=== PATIENT | male | born 1965 | race Caucasian/White ===

== ENCOUNTER 2023-07-02 18:01 | Outpatient (RCR) | payer OTHER, SELFPAY | END 2023-07-02 23:59 | disposition home or self-care (01) | LOC: RPT 18:01 | PROVIDERS: ATTENDING PHYSICIAN Orthopaedic Surgery; FAMILY PHYSICIAN Family Medicine | DX: M25.571 Pain in right ankle and joints of right foot (principal); Z73.6 Limitation of activities due to disability | CPT/HCPCS: 97110; 97112; 97140; 97161 ==

== ENCOUNTER 2023-08-06 17:38 | Outpatient (RCR) | payer OTHER, SELFPAY | END 2023-08-06 23:59 | disposition home or self-care (01) | LOC: RPT 17:38 | PROVIDERS: ATTENDING PHYSICIAN Orthopaedic Surgery; FAMILY PHYSICIAN Family Medicine | DX: M25.571 Pain in right ankle and joints of right foot (principal); Z73.6 Limitation of activities due to disability | CPT/HCPCS: 97110; 97112; 97140 ==

== ENCOUNTER → 2023-08-14 11:16 | Outpatient (REF) | payer OTHER, SELFPAY ==
[2023-08-14 12:28] LABS: D-Dimer < 0.27 ug/mlFEU (0.00-0.50)
== END ==
LOC: RAD 11:16
PROVIDERS: ATTENDING PHYSICIAN Internal Medicine Hematology & Oncology; FAMILY PHYSICIAN Family Medicine; REFERRING PHYSICIAN Orthopaedic Surgery
DX: I82.401 Acute embolism and thrombosis of unspecified deep veins of right lower extremity (principal)
CPT/HCPCS: 36415; 85379; 93971

== ENCOUNTER → 2023-11-12 07:06 | Outpatient (REF) | payer OTHER, SELFPAY ==
[2023-11-12 09:28] LABS: D-Dimer 0.38 ug/mlFEU (0.00-0.50)
== END ==
LOC: RAD 07:06
PROVIDERS: ATTENDING PHYSICIAN Internal Medicine Hematology & Oncology; FAMILY PHYSICIAN Family Medicine
DX: I82.401 Acute embolism and thrombosis of unspecified deep veins of right lower extremity (principal)
CPT/HCPCS: 36415; 85379; 93971

== ENCOUNTER → 2023-12-08 06:28 | Day surgery (SDC) | payer OTHER, SELFPAY | LOC: GI 06:28 | PROVIDERS: ATTENDING PHYSICIAN Internal Medicine | DX: Z12.11 Encounter for screening for malignant neoplasm of colon (principal); D12.0 Benign neoplasm of cecum; K57.30 Diverticulosis of large intestine without perforation or abscess without bleeding; K64.9 Unspecified hemorrhoids; Z86.010 Personal history of colon polyps | CPT/HCPCS: 45380; 88305 ==

== ENCOUNTER → 2024-09-28 08:02 | Outpatient (REF) | payer OTHER, SELFPAY | LOC: HWRAD 08:02 | PROVIDERS: ATTENDING PHYSICIAN Orthopaedic Surgery; FAMILY PHYSICIAN Family Medicine | DX: M93.271 Osteochondritis dissecans, right ankle and joints of right foot (principal) | CPT/HCPCS: 73700 ==

== ENCOUNTER → 2024-11-09 07:46 | Outpatient (REF) | payer OTHER, SELFPAY | LOC: RCS 07:46 | PROVIDERS: ATTENDING PHYSICIAN Nurse Practitioner Family; FAMILY PHYSICIAN Family Medicine | DX: Z01.818 Encounter for other preprocedural examination (principal) | CPT/HCPCS: 93005 ==

== ENCOUNTER 2025-02-02 12:10 | Outpatient (RCR) | payer OTHER, SELFPAY | END 2025-02-02 23:59 | disposition home or self-care (01) | LOC: RPT 12:10 | PROVIDERS: ATTENDING PHYSICIAN Orthopaedic Surgery; FAMILY PHYSICIAN Family Medicine | DX: Z47.89 Encounter for other orthopedic aftercare (principal); Z73.6 Limitation of activities due to disability; M25.571 Pain in right ankle and joints of right foot; R26.89 Other abnormalities of gait and mobility; M62.81 Muscle weakness (generalized) | CPT/HCPCS: 97110; 97161; 97530 ==

== ENCOUNTER 2025-03-02 18:59 | Outpatient (RCR) | payer OTHER, SELFPAY | END 2025-03-02 23:59 | disposition home or self-care (01) | LOC: RPT 18:59 | PROVIDERS: ATTENDING PHYSICIAN Orthopaedic Surgery; FAMILY PHYSICIAN Family Medicine | DX: Z47.89 Encounter for other orthopedic aftercare (principal); Z73.6 Limitation of activities due to disability; M25.571 Pain in right ankle and joints of right foot; R26.89 Other abnormalities of gait and mobility; M62.81 Muscle weakness (generalized) | CPT/HCPCS: 97010; 97110; 97112; 97116; 97140; 97530 ==

== ENCOUNTER 2025-03-16 19:00 | Outpatient (RCR) | payer OTHER, SELFPAY | END 2025-03-16 23:59 | disposition home or self-care (01) | LOC: RPT 19:00 | PROVIDERS: ATTENDING PHYSICIAN Orthopaedic Surgery; FAMILY PHYSICIAN Family Medicine | DX: Z47.89 Encounter for other orthopedic aftercare (principal); Z73.6 Limitation of activities due to disability; M25.571 Pain in right ankle and joints of right foot; R26.89 Other abnormalities of gait and mobility; M62.81 Muscle weakness (generalized) | CPT/HCPCS: 97110; 97112; 97530 ==